=== PATIENT | female | born 1960 | race Caucasian/White ===

== ENCOUNTER → 2018-01-24 | Day surgery (SDC) | payer OTHER ==
[~2018-01-24] MED LIST: AMLO10TA6 PO; ASCO500T2 PO; ASPI-482 PO; CRESTOR20 MG PO; DICL100T PO; ESOM20CA PO; FENO150C PO; FERR-36 PO; FURO-68 PO; HYDROmorphone 2 MG/ML VIAL IV PRN; IV RINGERS,LACTATED 1000ML 1,000 ML IV SCH; LIDOCAINE 1% PF 2 ML VIAL. ID PRN; LISI1TAB7 PO; MAGN500C10 PO; MORPHINE SULFATE 2 MG/ML VIAL. IV PRN; MULT1TAB52 PO; OLME1TAB35 PO; OMEG1CAP65 PO; OMEP20TA63 PO; ONDANSETRON PF 4 MG/2 ML VIAL. IV PRN; POTA20PA30 PO; PROCHLORPERAZINE 10 MG/2 ML VIAL. IV PRN; PROPOFOL 40 ML IV ONE; SAXA1TBM3 PO; SITA1TAB11 PO; fentaNYL PF VIAL 100 MCG/2 ML VIAL IV PRN
[2018-01-24 09:38] VITALS: BP 134/61
== END | disposition home or self-care (01) ==
LOC: SURG 06:24
PROVIDERS: ATTEND Internal Medicine Gastroenterology
DX: Z12.11 Encounter for screening for malignant neoplasm of colon (principal); K64.0 First degree hemorrhoids; I10 Essential (primary) hypertension; E11.9 Type 2 diabetes mellitus without complications; E78.5 Hyperlipidemia, unspecified; E78.00 Pure hypercholesterolemia, unspecified; M19.90 Unspecified osteoarthritis, unspecified site; Z85.828 Personal history of other malignant neoplasm of skin; Z86.010 Personal history of colon polyps; Z80.0 Family history of malignant neoplasm of digestive organs; D64.9 Anemia, unspecified; Z82.3 Family history of stroke; Z83.3 Family history of diabetes mellitus; Z82.49 Family history of ischemic heart disease and other diseases of the circulatory system; Z83.71 Family history of colonic polyps; Z72.89 Other problems related to lifestyle; Z87.891 Personal history of nicotine dependence; Z79.82 Long term (current) use of aspirin; Z79.84 Long term (current) use of oral hypoglycemic drugs; Z79.899 Other long term (current) drug therapy; Z90.49 Acquired absence of other specified parts of digestive tract; Z98.890 Other specified postprocedural states; Z98.51 Tubal ligation status; Z96.651 Presence of right artificial knee joint
CPT/HCPCS: 45378; 82962; J2704

== ENCOUNTER 2020-10-26 11:06 | Emergency (ER) | payer OTHER ==
[~2020-10-26] VITALS: Ht 157.5 cm; Wt 106.4 kg
[~2020-10-26 11:06] MED LIST changes: +AMLO-187 PO; -AMLO10TA6 PO; -ASCO500T2 PO; +ASCO500T4 PO; -HYDROmorphone 2 MG/ML VIAL IV PRN; -IV RINGERS,LACTATED 1000ML 1,000 ML IV SCH; -LIDOCAINE 1% PF 2 ML VIAL. ID PRN; +LISI1TAB20 PO; -LISI1TAB7 PO; -MORPHINE SULFATE 2 MG/ML VIAL. IV PRN; +MULT-445 PO; -MULT1TAB52 PO; -ONDANSETRON PF 4 MG/2 ML VIAL. IV PRN; -PROCHLORPERAZINE 10 MG/2 ML VIAL. IV PRN; -PROPOFOL 40 ML IV ONE; -fentaNYL PF VIAL 100 MCG/2 ML VIAL IV PRN
[2020-10-26] MEDS ORDERED: HYDROcodone/APAP 5/325MG 1 TAB TABLET PO ONE (11:45)
--- NOTE | 2020-10-26 11:45 | ED.ADGEN ---
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 Patient also reports abrasions to her right ribs, right elbow, and right lower leg. She is unsure when her last tetanus shot was she thinks it was either 4 or 5 years ago. She denies any head injury, neck pain, back pain, loss of consciousness, nausea, vomiting, abdominal pain, numbness, tingling, or weakness. She denies taking anything for pain prior to arrival. She currently rates her pain a 10 out of 10 on the pain scale, she denies any alleviating factors, the pain is worse with palpation or movement of the tender areas. Review of Systems: Review of Systems: Complete ROS is negative unless otherwise noted in HPI. Current Medications: Current Medications Medications (Trade) Dose Ordered Sig/Kwaku Start Time Stop Time Status Last Admin Dose Admin Acetaminophen/ Hydrocodone Bitart (Lortab 5/325) 1 tab 1X ONCE 10/26/20 11:45 10/26/20 11:46 DC 10/26/20 12:15 1 TAB Diphtheria/ Tetanus/Acell Pertussis (ADACEL TDap SYRINGE) 0.5 ml ONCE ONCE 10/26/20 13:00 10/26/20 13:03 DC Neomycin/ Polymyxin/ Bacitracin (Triple Antibiotic Ointment) 1 pkt 1X ONCE 10/26/20 13:00 10/26/20 13:03 DC Allergies: Allergies: Allergies Coded Allergies Type Severity Reaction Last Updated Verified No Known Drug Allergies 01/24/18 No Physical Exam: PE: See Above Constitutional: Well developed, well nourished, no acute distress, non-toxic appearance. [] HENT: Normocephalic, atraumatic, bilateral external ears normal, nose normal. [] Eyes: PERRLA, EOMI, conjunctiva normal, no discharge. [] Neck: Normal range of motion, no stridor. [] Cardiovascular:Heart rate regular rhythm Lungs & Thorax: Respirations even and unlabored, no retractions, no respiratory distress; lateral right rib tenderness to palpation without crepitus or subcutaneous emphysema, lungs CTA Abdomen: soft, no tenderness Back: No bony tenderness or deformity Skin: Warm, dry, no erythema, no rash; abrasions to the right lateral elbow, right lateral leg, and right ribs, no active bleeding, no foreign body; small bruise to right lateral chest wall [] Extremities: Right elbow: Lateral tenderness to palpation without obvious deformity or crepitus, 2+ radial pulse, cap refill less than 2 seconds, no cyanosis, ROM intact, no edema. [] Right hip: Lateral tenderness to palpation without obvious deformity/crepitus/shortening/rotation, no cyanosis, ROM intact, no edema. [] Right knee: Anterior tenderness to palpation without crepitus deformity, sensation intact, cap refill less than 2 seconds, no cyanosis, ROM intact, no edema. [] Neurologic: Alert and oriented X 3, normal motor, normal sensory, no focal deficits noted. [] Psychologic: Affect normal, judgement normal, mood normal. [] Current Patient Data: Vital Signs: Vital Signs Date Time Temp Pulse Resp B/P (MAP) Pulse Ox O2 Delivery O2 Flow Rate FiO2 10/26/20 12:15 15 100 Room Air 10/26/20 11:23 97.6 97 139/79 (99) 97.6 EKG: EKG: [] Heart Score: C/O Chest Pain: No Risk Factors: Risk Factors: DM, Current or recent (<one month) smoker, HTN, HLP, family history of CAD, obesity. Risk Scores: Score 0 - 3: 2.5% MACE over next 6 weeks - Discharge Home Score 4 - 6: 20.3% MACE over next 6 weeks - Admit for Clinical Observation Score 7 - 10: 72.7% MACE over next 6 weeks - Early Invasive Strategies Radiology/Procedures: Radiology/Procedures: PROCEDURE: RIBS RIGHT AND PA CHEST EXAM: Right elbow, 3 views; chest and right ribs, 6 views; pelvis and right hip, 3 views. HISTORY: Fall. Pain. COMPARISON: None. FINDINGS: Chest and right ribs: A frontal view the chest and 5 views of the right ribs are obtained. There is no infiltrate, pleural effusion or pneumothorax. The heart is normal in size. No acute rib fracture is seen. Pelvis and right hip: A frontal view the pelvis and 2 views the right hip are obtained. There is no fracture, dislocation or subluxation. The femoral heads are normal in configuration. There is slight decreased femoral head-neck offset, not within limits to suggest significant hip impingement. Right elbow: 3 views of the right elbow are obtained. There is no elbow effusion. There is degenerative osseous excrescence along the lateral epicondyle. IMPRESSION: No acute pulmonary or osseous finding. Electronically signed by: Sparkle Mendez MD (10/26/2020 12:21 PM) [id number][] PROCEDURE: KNEE RIGHT 3V EXAM: Right knee, 3 views. HISTORY: Pain. Fall. COMPARISON: 04/29/2009. FINDINGS: 3 views of the right knee are obtained. There is a medial compartment unicompartmental right knee arthroplasty in expected position. There is no evidence of arthroplasty loosening. There is moderate patellofemoral and lateral compartment spurring. There is a small joint effusion. There is enthesopathy along the anterior tibial tubercle and patella. IMPRESSION: 1. Medial compartment intra-abdominal right knee arthroplasty in expected p osition. 2. Moderate patellofemoral and lateral compartment osteoarthritis with small joint effusion. Electronically signed by: Spakrle Mendez MD (10/26/2020 1:20 PM) [id number] Course & Med Decision Making: Course & Med Decision Making Pertinent Labs and Imaging studies reviewed. (See chart for details) [] Dragon Disclaimer: Dragon Disclaimer: This electronic medical record was generated, in whole or in part, using a voice recognition dictation system. Departure Departure Impression: Primary Impression: Fall Additional Impressions: Right elbow pain Acute right hip pain Right anterior knee pain Contusion of rib on right side Abrasions of multiple sites Need for Tdap vaccination Disposition: 01 HOME / SELF CARE / HOMELESS Condition: STABLE Referrals: NON,STAFF (PCP) BRIAN ESPINOSA MD Patient Instructions: Abrasion, [id number], Contusion, [id number], Knee Pain, [id number], Rib Contusion, VIS, Tetanus, Diphtheria (Td); Tetanus, Diphtheria, Pertussis (Tdap) - CDC Additional Instructions: Fill the prescription and take as directed for severe pain. Hold a pillow and cough at least 2 times every hour while awake. Recommend application of ice, elevation, and rest of affected areas. Follow-up with Dr. Espinosa if symptoms persist, follow up with your primary care doctor this week. Return to the ER if symptoms worsen or fever develops. Scripts Hydrocodone Bit/Acetaminophen (HYDROCODONE-APAP 5-325 ) 1 Tab Tablet 0.5-1 TAB PO PRN Q6HRS PRN for PAIN for 3 Days, #10 TAB 0 Refills Prov: GRACY JEWELL [employer]INEERING AIDE 10/26/20 Problem Qualifiers Primary Impression: Fall Encounter type: initial encounter Qualified Codes: W19.XXXA - Unspecified fall, initial encounter Additional Impressions: Contusion of rib on right side Encounter type: initial encounter Qualified Codes: S20.211A - Contusion of right front wall of thorax, initial encounter GRACY JEWELL [employer]VIRONMENTAL ENGINEERING AIDE Oct 26, 2020 11:45
--- NOTE | 2020-10-26 12:24 | RAD ---
EXAM: Right elbow, 3 views; chest and right ribs, 6 views; pelvis and right hip, 3 views. HISTORY: Fall. Pain. COMPARISON: None. FINDINGS: Chest and right ribs: A frontal view the chest and 5 views of the right ribs are obtained. There is no infiltrate, pleural effusion or pneumothorax. The heart is normal in size. No acute rib f racture is seen. Pelvis and right hip: A frontal view the pelvis and 2 views the right hip are obtained. There is no f racture, dislocation or subluxation. The femoral heads are normal in configuration. There is slight d ecreased femoral head-neck offset, not within limits to suggest significant hip impingement. Right elbow: 3 views of the right elbow are obtained. There is no elbow effusion. There is degenerati ve osseous excrescence along the lateral epicondyle. IMPRESSION: No acute pulmonary or osseous finding. Electronically signed by: Sparkle Mendez MD (10/26/2020 12:21 PM) [id number]
[2020-10-26 12:32] VITALS: BP 157/75
[2020-10-26] MEDS ORDERED: DIPH,PERTUSS(ACELL),TET VAC/PF 0.5 ML SYRINGE. VAX IM ONE (13:00)
[2020-10-26] MEDS ORDERED: NEOMY/BACITR/POLYMYXIN OINT PACKET. TP ONE (13:00)
--- NOTE | 2020-10-26 13:23 | RAD ---
EXAM: Right knee, 3 views. HISTORY: Pain. Fall. COMPARISON: 04/29/2009. FINDINGS: 3 views of the right knee are obtained. There is a medial compartment unicompartmental righ t knee arthroplasty in expected position. There is no evidence of arthroplasty loosening. There is mo derate patellofemoral and lateral compartment spurring. There is a small joint effusion. There is ent hesopathy along the anterior tibial tubercle and patella. IMPRESSION: 1. Medial compartment intra-abdominal right knee arthroplasty in expected position. 2. Moderate patellofemoral and lateral compartment osteoarthritis with small joint effusion. Electronically signed by: Sparkle Mendez MD (10/26/2020 1:20 PM) [id number]
[2020-10-26] MEDS ORDERED: HYDR-2761 PO (13:38)
== END 2020-10-26 14:06 | disposition home or self-care (01) ==
LOC: ER 11:06
DX: S20.211A Contusion of right front wall of thorax, initial encounter (principal); S50.311A Abrasion of right elbow, initial encounter; S80.811A Abrasion, right lower leg, initial encounter; M25.551 Pain in right hip; M19.90 Unspecified osteoarthritis, unspecified site; E11.9 Type 2 diabetes mellitus without complications; E78.00 Pure hypercholesterolemia, unspecified; I10 Essential (primary) hypertension; Z96.651 Presence of right artificial knee joint; W18.39XA Other fall on same level, initial encounter; Y93.89 Activity, other specified; Y92.89 Other specified places as the place of occurrence of the external cause; Y99.8 Other external cause status
CPT/HCPCS: 71101; 73080; 73502; 73562; 90471; 90715; 99284